=== PATIENT | female | born 1975 | race Caucasian/White ===

== ENCOUNTER 2018-12-08 17:31 | Emergency (ER) | payer OTHER ==
[~2018-12-08] VITALS: Ht 180.3 cm; Wt 97.7 kg
[2018-12-08] MEDS ORDERED: FISH1000 PO (17:45)
[2018-12-08] MEDS ORDERED: ATOR40TA75 PO (17:45)
[2018-12-08 18:08] LABS: BASO # 0.1 10^3/uL (0.0-0.2); EOS # 0.2 10^3/uL (0.0-0.50); EOS % 2.6 % (0.0-3.0); HEMATOCRIT 42.2 % (36.0-47.0); HEMOGLOBIN 14.3 g/dl (12.0-15.5); LYMPH % 32.6 % (24.0-44.0); MEAN CORPUSCULAR HEMOGLOBIN 30.4 pg (27.0-33.0); MEAN CORPUSCULAR HGB CONC 33.9 g/dl (32.0-36.5); MEAN CORPUSCULAR VOLUME 89.8 fl (80.0-96.0); MONO # 0.5 10^3/uL (0.0-0.8); MONO % 8.3 % (0.0-5.0); NEUTROPHILS # 3.5 10^3/uL (1.8-7.7); NEUTROPHILS % 55.2 % (36.0-66.0); PLATELET COUNT, AUTOMATED 293 10^3/uL (150-450); WHITE BLOOD COUNT 6.3 10^3/uL (4.0-10.0)
[2018-12-08 18:17] LABS: INR 0.84; PROTHROMBIN TIME 11.6 SECONDS (12.1-14.4)
[2018-12-08 18:26] LABS: ALBUMIN 4.3 GM/DL (3.2-5.2); ALT/SGPT 65 U/L (12-78); BILIRUBIN,TOTAL 0.3 MG/DL (0.2-1.0); BLOOD UREA NITROGEN 14 MG/DL (7-18); CALCIUM LEVEL 9.3 MG/DL (8.5-10.1); CARBON DIOXIDE LEVEL 25 MEQ/L (21-32); CHLORIDE LEVEL 107 MEQ/L (98-107); CPK CREATINE PHOSPHOKINASE 486 U/L (26-192); CREATININE FOR GFR 1.06 MG/DL (0.55-1.30); GLOMERULAR FILTRATION RATE 59.7 (>58); GLUCOSE, FASTING 90 MG/DL (70-100); LIPASE 202 U/L (73-393); MB/CK RELATIVE INDEX 1.03 (< OR =4); SODIUM LEVEL 139 MEQ/L (136-145); TROPONIN I < 0.02 NG/ML (< 0.10)
[2018-12-08] MEDS ORDERED: ALBUTEROL SULFATE 2.5 MG/0.5 ML INH NEB SOLN INH ONE (18:30)
--- NOTE | 2018-12-08 18:32 | REP ---
CHEST, PORTABLE: There is no evidence of acute infiltrate. No pleural effusion is seen. The heart is normal in size. The mediastinal silhouette is unremarkable. The visualized osseous structures are intact. IMPRESSION: No acute pulmonary disease. Electronically Signed by Wayne Blas MD 12/08/2018 08:19 P
[2018-12-08 18:48] LABS: NT-PRO BNP < 5 PG/ML (<125)
[2018-12-08] MEDS ORDERED: ASPI81TA85 PO (20:01)
[2018-12-08] MEDS ORDERED: PROA1AER2 INH (20:26)
[2018-12-08 20:30] VITALS: BP 128/61
--- NOTE | 2018-12-09 16:11 | ECGEPIP ---
[facility] - ED Test Date: 2018-12-08 Pat Name: SHER ZUÑIGA Department: Room: - Gender: Female Wound Care Specialist: : [id number] Requested By: DUNIA Hunter Order Number: [id number] Reading MD: Eliza Carpio Measurements Intervals [place] Rate: 84 P: 46 MO: 177 QRS: 43 QRSD: 107 T: 16 QT: 360 QTc: 426 Interpretive Statements SINUS RHYTHM NO PRIOR FOR COMPARISON Electronically Signed on 12-09-2018 16:10:44 EDT by Eliza Carpio
== END 2018-12-08 20:37 | disposition home or self-care (01) ==
LOC: EDSEX 17:31 → M ED 17:31 → EDBD 17:31 → M ED 20:37
DX: R07.2 Precordial pain (principal); R06.02 Shortness of breath; J45.909 Unspecified asthma, uncomplicated; E78.5 Hyperlipidemia, unspecified; Z87.891 Personal history of nicotine dependence; Z79.899 Other long term (current) drug therapy; Z79.82 Long term (current) use of aspirin

== ENCOUNTER → 2018-12-14 | Outpatient (CLI) | payer OTHER ==
[~2018-12-14] MED LIST: ASPI81TA85 PO; ATOR40TA75 PO; FISH1000 PO; PROA1AER2 INH
--- NOTE | 2018-12-24 16:23 | REP ---
CT of the chest without IV contrast: Studies performed for A small nodular density in the right mid lung identified on PA and lateral plain film studies dated 12/08/2018 ([place], [place]). There is an additional comparison portable plain film study dated 12/08/2018. This nodular density in the right lung is not visible on the portable study. The patient states that he had prior studies performed at [facility]. Telephone call to this hospital revealed there is only an x-ray of the hand. On the current CT there are no infiltrates. No pleural effusions. There is a 6 mm nodule on image 63 in the right middle lobe. The this is considered a category III lung nodule with the probability of malignancy one - 2%. Follow-up chest CT in 6 months is recommended for further evaluation. There are no other lung nodules. There is no mediastinal or axillary lymph node enlargement. The study is insensitive for hilar lymph node enlargement in the absence of IV contrast. The thoracic aorta is unremarkable. There is calcified atheroma in the left and anterior descending branch of the coronary arteries. Cardiac size is normal. There is no pericardial effusion. Upper abdomen: There is hepato steatosis. The gallbladder, pancreas, the visualized areas of the gallbladder, pancreas and spleen are unremarkable. Visualized areas of the adrenals and kidneys are. Impression: There is a 6 ml nodule in the right middle lobe as discussed. 6-month follow-up chest CT is recommended. Hepato steatosis. Electronically Signed by Wyane Jones MD 12/24/2018 04:15 P
== END ==
LOC: M RAD 06:59
PROVIDERS: ATTEND Family Medicine
DX: R91.1 Solitary pulmonary nodule (principal); K76.0 Fatty (change of) liver, not elsewhere classified; R07.9 Chest pain, unspecified

== ENCOUNTER → 2019-06-24 | Outpatient (CLI) | payer OTHER ==
--- NOTE | 2019-06-24 08:59 | REP ---
Clinical: Follow-up pulmonary nodule. Technique: Axial noncontrast images from the thoracic inlet to the upper abdomen with coronal and sagittal re-formations. Comparison: 12/14/2018 Findings: The bilateral lung jones are well-aerated and essentially clear. There is a small linear 1 x 6 mm density in the right middle lobe (image 58) which remains stable and likely represents small scar. No further consolidation, significant nodule or mass lesion. No effusion. No pneumothorax. Tracheobronchial tree is patent. No obvious adenopathy. The mediastinum demonstrates atherosclerotic changes to the coronary arteries. No cardiomegaly or pericardial effusion. Thoracic aorta without aneurysm. Surrounding musculoskeletal structures are intact. Limited upper abdomen demonstrates normal bilateral adrenal glands and hepatic steatosis. Impression: 1. Previously identified density in the right middle lobe remains stable and likely represents small scar. 2. No further acute mediastinal or pleuroparenchymal process. 3. Hepatic steatosis. Electronically Signed by Maverick Foley MD 06/24/2019 08:51 A
== END ==
LOC: M RAD 07:25
PROVIDERS: ATTEND Family Medicine
DX: R91.1 Solitary pulmonary nodule (principal)